=== PATIENT | male | born 1970 | race Caucasian/White ===

== ENCOUNTER 2025-03-07 10:11 | Emergency (ER) | payer MEDICARE, SELFPAY ==
[2025-03-07 10:23] VITALS: BP 148/96; PULSE 92; TEMP 36.6; O2SAT 95; BMI 37.6
--- NOTE | 2025-03-07 10:42 | XR_ITS ---
The [address] [address] Patient Name: AVIS CANADA MRN: [id number] date: 1970 Sex: M Assigned Patient Location: ED.MAIN Current Patient Location: ED.MAIN Accession/Order Number: [id number] Exam Date: 03/07/2025 11:00 Report Date: 03/07/2025 11:24 At the request of: JAZIEL SLATER MD Procedure: XR knee RT 3V Right hip 2 views of one view pelvis. Right knee 3 views Reason for exam: Radiating pain to right leg and right knee for one day. COMPARISON: None. FINDINGS: Right hip/pelvis: Mild degenerative changes of the hips without acute bony process. Additional degenerative changes seen involving the lower lumbar spine SI joints and pubic symphysis. Right knee: Small knee joint effusion. Mild degenerative change without acute bony process. XR/XR knee RT 3V IMPRESSION: Degenerative changes involving the hips and right knee without acute bony process. Impression dictated by: Katarina Barron Jr.OCarlos 03/07/2025 11:24 AM Dictation Location: [place] [address] Electronically authenticated by: [id number] Y Date: 03/07/2025 11:24
--- NOTE | 2025-03-07 10:42 | XR_ITS ---
The [address] [address] Patient Name: AVIS CANADA MRN: [id number] date: 1970 Sex: M Assigned Patient Location: ED.MAIN Current Patient Location: ED.MAIN Accession/Order Number: [id number] Exam Date: 03/07/2025 11:00 Report Date: 03/07/2025 11:24 At the request of: JAZIEL SLATER MD Procedure: XR knee RT 3V Right hip 2 views of one view pelvis. Right knee 3 views Reason for exam: Radiating pain to right leg and right knee for one day. COMPARISON: None. FINDINGS: Right hip/pelvis: Mild degenerative changes of the hips without acute bony process. Additional degenerative changes seen involving the lower lumbar spine SI joints and pubic symphysis. Right knee: Small knee joint effusion. Mild degenerative change without acute bony process. XR/XR hip RT 2V w/ pelvis IMPRESSION: Degenerative changes involving the hips and right knee without acute bony process. Impression dictated by: Miguel Kyle Jr. DCarlosOCarlos 03/07/2025 11:24 AM Dictation Location: [place] [address] Electronically authenticated by: [id number] Y Date: 03/07/2025 11:24
--- NOTE | 2025-03-07 10:43 | CT_ITS ---
The [address] [address] Patient Name: AVIS ARCE MRN: [id number] date: 1970 Sex: M Assigned Patient Location: ED.MAIN Current Patient Location: ED.MAIN Accession/Order Number: [id number] Exam Date: 03/07/2025 11:00 Report Date: 03/07/2025 11:26 At the request of: JAZIEL SLATER MD Procedure: CT lumbar spine wo con CT lumbar spine wo con 03/07/2025 11:11 AM History:Radiating pain to right leg for one day TECHNIQUE: Multi detector CT axial slices of the lumbar spine were obtained without IV contrast. Volumetric acquisition sagittal, coronal, and 3-D reconstructions were performed and reviewed on a separate workstation. CT was performed with one or more of the following dose reduction techniques: Automated exposure control, adjustment of the mA and/or kV according to patient size, or use of iterative reconstruction technique. COMPARISON: None FINDINGS: No fracture. Vertebral heights appear maintained. No significant disc height loss. Diffuse endplate and facet joint degenerative changes. Transverse processes appear intact. No paraspinal mass. SI joints demonstrate degenerative change. Visualized retroperitoneum demonstrates no acute process. CT/CT lumbar spine wo con IMPRESSION: No acute bony abnormality or malalignment. Impression dictated by: Miguel Kyle Jr., D.O. 03/07/2025 11:26 AM Dictation Location: [place] [address] Electronically authenticated by: [id number] Y Date: 03/07/2025 11:26
--- NOTE | 2025-03-07 10:44 | ED.LOWEXI1 ---
HPI HPI - Extremity Injury (Lower) General Chief Complaint: Extremity Injury, Lower Stated Complaint: RIGHT LEG PAIN Time Seen by Provider: 03/07/25 10:31 Source: patient Mode of arrival: Wheelchair Limitations: no limitations History of Present Illness HPI Narrative: The patient is 55-year-old male with history of arthritis and apparently had a history of cervical canal stenosis that ended up with him having multiple level surgery few years ago, the patient mention at that time he did not have any fall or trauma which is related to movement, the patient is coming today with a right knee hip and back pain that started all of a sudden, started yesterday when he was trying to get out of his recliner The patient is morbidly obese with a BMI of 37 and he mentioned that there was no fall or trauma but since he has been having the pain he has not been able to ambulate or even drive because he is not able to bend his right knee, he remember that he already have a history of arthritis of the knee but it never been this bad that he is not able to put weight on it or bend it, the patient also denies any difficulty going to the bathroom or any incontinence of stool Pain the right lower back goes behind the right hip and right knee as well as causing numbness in the lateral aspect of the right thigh Related Data Home Medications ?Medication ?Instructions ?Recorded ?Confirmed lisinopril 10 mg tablet 10 mg PO DAILY 03/07/25 03/07/25 metoprolol succinate 25 mg 25 mg PO DAILY 03/07/25 03/07/25 tablet,extended release 24 hr Previous Rx's ?Medication ?Instructions ?Recorded diclofenac sodium 75 mg 75 mg PO BID PRN pain #20 tabs 03/07/25 tablet,delayed release oxycodone-acetaminophen 5 mg-325 1 tab PO Q8H PRN pain 3 days #9 03/07/25 mg tablet (Percocet) tabs Allergies Allergy/AdvReac Type Severity Reaction Status Date / Time No Known Drug Allergies Allergy Verified 03/07/25 10:21 Opioid HPI Opioid Management Most Recent Pain and Opioid Data: Last Pain Scale 6 Today, 11:10 Last MAR Pain Assessment Today, 11:10 Review of Systems ROS Status of ROS 10 or more systems reviewed and unremarkable except as noted in history and below PFSH PFSH Social History Little interest or pleasure in doing things: not at all Feeling down, depressed, or hopeless: not at all Exam Narrative Exam Narrative: Nurses notes and vital signs reviewed and patient is not hypoxic. General: Well-appearing and in no apparent distress. Skin: Warm, dry, no pallor noted. No rash. Head: Normocephalic, atraumatic. Back: No midline thoracic or lumbar vertebral tenderness. There is paraspinal muscle tenderness of the right lower lumbar level as well as the sacral and the patient also have tenderness palpation of the posterior aspect of the right hip, patient Musculoskeletal: Patient has decreased range of movement in the right knee due to pain but there is no tenderness on localized palpation. There is no significant effusion Full range of movement in the ankle and numbness in the right lateral aspect of the thigh There is also tenderness palpation of the right hip GI: Abdomen is soft, non-distended. Normal bowel sounds. No masses appreciated. No tenderness to palpation. No rebound, guarding, or rigidity noted. Neurological: A&O x4. No cranial nerve dysfunction observed. No truncal ataxia. Moves all extremities. Sensation intact. Psychiatric: Cooperative and interactive. Normal mood and affect. Constitutional Vital Signs, click to edit/add: Last Vital Signs Temp 98 F 03/07/25 10:23 Pulse 92 H 03/07/25 10:23 Resp 20 03/07/25 10:23 BP 148/96 H 03/07/25 10:23 Pulse Ox 95 03/07/25 10:23 O2 Del Method Room Air 03/07/25 10:23 Course Vital Signs Vital signs: Vital Signs Temperature 98 F 03/07/25 10:23 Pulse Rate 92 H 03/07/25 10:23 Respiratory Rate 20 03/07/25 10:23 Blood Pressure 148/96 H 03/07/25 10:23 Pulse Oximetry 95 03/07/25 10:23 Oxygen Delivery Method Room Air 03/07/25 10:23 Temperature 98 F 03/07/25 10:23 Pulse Rate 92 H 03/07/25 10:23 Respiratory Rate 20 03/07/25 10:23 Blood Pressure 148/96 H 03/07/25 10:23 Pulse Oximetry 95 03/07/25 10:23 Oxygen Delivery Method Room Air 03/07/25 10:23 MDM - Extremity Injury (Lower) MDM Narrative Medical decision making narrative: The patient CAT scan of the lumbar spine as well as x-ray of the right hip and right knee showed no acute pathology except for arthritis The patient mentioned that he is not able to put weight on his leg and he is not able to bend his right knee and that is why the concern for sciatica-like symptoms although the patient did not have any alarming symptoms of incontinence of urine or stool After being treated with Toradol in the ER in addition to Solu-Medrol and 1 tablet of Percocet the patient was feeling much better He was able to ambulate and he was provided with Percocet as well as Voltaren to go home with The patient is to follow up with primary care physician in next 2-3 days or to return to the emergency department should any of the signs or symptoms worsen or new symptoms develop. The patient agrees with the following Diagnosis and Treatment plan and the patient will be discharged home. Discharge Plan Discharge Chief Complaint: Extremity Injury, Lower Clinical Impression: Back pain, Acute hip pain, Arthritis of knee Patient Disposition: Home, Self-Care Time of Disposition Decision: 11:45 Condition: Good Prescriptions / Home Meds: New diclofenac sodium 75 mg tablet,delayed release (DR/EC) 75 mg PO BID PRN (Reason: pain) Qty: 20 0RF oxycodone-acetaminophen [Percocet] 5-325 mg tablet 1 tab PO Q8H PRN (Reason: pain) 3 Days Qty: 9 0RF Discontinued ibuprofen [Advil] 200 mg tablet 400 mg PO ONCE No Action lisinopril 10 mg tablet 10 mg PO DAILY metoprolol succinate 25 mg tablet extended release 24 hr 25 mg PO DAILY Print Language: Algerian Instructions: Back Pain (ED), Hip Pain (ED) Referrals: Physician,Non-Staff, MD [Primary Care Provider] - 1 week Discharge Date/Time: 03/07/25 12:03
[2025-03-07] MEDS: ORPHENADRINE 60 MG/2 ML VIAL IM (11:10)
[2025-03-07] MEDS: OXYCODONE HCL/ACETAMINOPHEN 5MG/325MG 1 TAB PO (11:10)
[2025-03-07] MEDS: METHYLPREDNISOLONE SOD SUCC PF 125 MG/2 ML VIAL IM (11:10)
== END 2025-03-07 12:03 | disposition home or self-care (01) ==
PROVIDERS: Emergency Provider Emergency Medicine
DX: M25.551 Pain in right hip (principal); M54.50 Low back pain, unspecified; M17.9 Osteoarthritis of knee, unspecified; M48.02 Spinal stenosis, cervical region; E66.01 Morbid (severe) obesity due to excess calories; Z68.37 Body mass index [BMI] 37.0-37.9, adult
CPT/HCPCS: 72131; 73502; 73562; 76376; 96372; 99285; J2360; J2919